=== PATIENT | male | born 1990 | race Hispanic/Latino ===

== ENCOUNTER → 2018-02-24 | Outpatient (CLI) | payer OTHER | LOC: M OUTALCOH 07:50 | DX: F10.10 Alcohol abuse, uncomplicated (principal) ==

== ENCOUNTER 2018-03-06 15:32 | Outpatient (RCR) | payer OTHER | END 2018-03-09 | LOC: M OUTALCOH 15:32 | DX: F10.10 Alcohol abuse, uncomplicated (principal) ==

== ENCOUNTER 2018-03-18 16:00 | Outpatient (RCR) | payer MEDICAID | END 2018-04-09 | LOC: M OUTALCOH 03-25 16:00 | DX: F10.10 Alcohol abuse, uncomplicated (principal) ==

== ENCOUNTER 2018-04-15 11:26 | Outpatient (RCR) | payer MEDICAID | END 2018-05-09 | LOC: M OUTALCOH 04-18 15:23 | DX: F10.10 Alcohol abuse, uncomplicated (principal) ==

== ENCOUNTER → 2018-05-05 | Outpatient (CLI) | payer OTHER ==
[2018-05-08 14:20] LABS: OXYCODONE SCREEN Negative ng/mL (Cutoff:5)
== END ==
LOC: M LAB 17:18
DX: F10.10 Alcohol abuse, uncomplicated (principal)
CPT/HCPCS: 36415

== ENCOUNTER 2018-05-12 15:44 | Outpatient (RCR) | payer MEDICAID | END 2018-06-09 | LOC: M OUTALCOH 15:44 | PROVIDERS: ATTEND Psychiatry & Neurology Psychiatry | DX: F10.10 Alcohol abuse, uncomplicated (principal) ==